=== PATIENT | female | born 1995 ===

== ENCOUNTER 2023-06-02 06:25 | Inpatient (IN) | payer OTHER ==
[~2023-06-02] VITALS: Ht 162.6 cm; Wt 66.7 kg
[2023-06-02 07:44] LABS: URINE APPEARANCE Clear; URINE BACTERIA 331.1 uL (0.0-1933); URINE BILIRRUBIN Negative (NEGATIVE); URINE BLOOD Trace; URINE COLOR Yellow; URINE EPITHELIAL CELLS 9.8 uL (0.0-38.8); URINE GLUCOSE Negative (NEGATIVE); URINE LEUKOCYTE Trace; URINE NITRATE Negative; URINE PROTEIN Negative (NEGATIVE); URINE UROBILINOGEN 0.2 E.U./dl; URINE WBC 16.5 uL (0.0-23.2)
[2023-06-02] MEDS ORDERED: OXYTOCIN 500 ML IV SCH (07:45)
[2023-06-02 07:48] LABS: URINE RBC 1.1 uL (0.0-20.8)
[2023-06-02] MEDS ORDERED: PRENATAL TABLE1 EAC4 PO (07:58)
[2023-06-02 08:09] LABS: HEMATOCRIT 35.8 % (36.0-45.00); HEMOGLOBIN 12.4 g/dL (12.0-15.00); MEAN CELL VOLUME 87.1 fL (80.00-100.00); MEAN CORPUSCULAR HEMOGLOBIN 30.3 pg (27.00-32.0); MEAN CORPUSCULAR HGB CONC 34.8 g/dl (32.0-36.0); PLATELET COUNT 206 K/uL (150-450); RED BLOOD COUNT 4.11 M/uL (4.00-6.00); RED CELL DISTRIBUTION WIDTH 13.4 % (11.5-14.5)
[2023-06-02 08:35] LABS: INR < 0.93; PARTIAL THROMBOPLASTIN TIME 29.1 SECONDS (22.0-34.0); PROTHROMBIN TIME 9.8 SECONDS (9.0-11.5)
[2023-06-02 08:39] LABS: ALBUMIN 2.6 gm/dL (3.4-5.0); BILIRUBIN TOTAL 0.3 mg/dL (0.3-1.2); CALCIUM 9.2 mg/dL (8.5-10.1); CREATININE SERUM 0.67 mg/dL (0.55-1.02); GFR 105.58; GLOBULINA 3.7 G/DL (2.4-3.5); POTASSIUM 3.52 mEq/L (3.5-5.1); TOTAL PROTEIN 6.3 gm/dL (6.4-8.2)
[2023-06-02] MEDS ORDERED: RINGERS SOLUTION,LACTATED 1,000 ML IV SCH (08:45)
[2023-06-02] MEDS ORDERED: CHLORHEXIDINE GLUCONATE 120 ML BOTTLE TOP ONE (09:27)
[2023-06-02] MEDS ORDERED: ERYTHROMYCIN BASE 1 GM TUBE OP ONE (09:28)
[2023-06-02] MEDS ORDERED: PROMETHAZINE HCL 25 MG/ML AMPUL ONE (09:28)
[2023-06-02] MEDS ORDERED: OXYTOCIN 20 UNITS/1000ML RL PIGGYBAG IV ONE (09:28)
[2023-06-02] MEDS ORDERED: MEPERIDINE HCL/PF 25 MG/ML VIAL IV ONE (10:00)
[2023-06-02] MEDS ORDERED: PROMETHAZINE HCL 25 MG/ML AMPUL IV ONE (10:00)
[2023-06-02] MEDS ORDERED: NALOXONE HCL 0.4 MG/ML AMPUL ONE (11:19)
[2023-06-02] MEDS ORDERED: CHLORHEXIDINE GLUCONATE 120 ML BOTTLE TOP SCH (12:45)
[2023-06-02] MEDS ORDERED: OXYTOCIN 1,000 ML IV SCH (12:45)
[2023-06-02] MEDS ORDERED: LIDOCAINE HCL 1% 200MG/20ML VIAL IJ SCH (12:45)
[2023-06-02] MEDS ORDERED: ERYTHROMYCIN BASE 1 GM TUBE OP SCH (12:45)
[2023-06-02] MEDS ORDERED: ACETAMINOPHEN 500 MG GEL..CAP PO PRN (12:45)
[2023-06-02] MEDS ORDERED: METHYLERGONOVINE MALEATE 0.2 MG/ML AMPUL ONE ×2 (13:58→15:50)
[2023-06-02] MEDS ORDERED: METHYLERGONOVINE MALEATE 0.2 MG/ML AMPUL IV ONE (14:30)
[2023-06-02 14:58] LABS: ABG PH 7.332 (7.35-7.45); ABG PO2 39.1 mmHg (80-100); ABG pCO2 42.4 mmHg (35-45); BASE EXCESS -3.8 mmol/l; SaO2 68.7 %; Tco2 23.3 mmol/l; o2 21 %
[2023-06-02] MEDS ORDERED: METHYLERGONOVINE MALEATE 0.2 MG/ML AMPUL IM SCH (17:00)
[2023-06-02] MEDS ORDERED: DOCUSATE SODIUM 100MG CAP PO SCH (17:00)
[2023-06-03] MEDS ORDERED: BENZOCAINE/MENTHOL 90 ML BOTTLE TOP PRN (09:00)
== END 2023-06-04 13:09 | disposition home or self-care (01) | DRG 807 ==
LOC: OB/GYN 06:25 → LDR 06:25 → OB/GYN 13:48
PROVIDERS: Obstetrics & Gynecology; ADMIT Student in an Organized Health Care Education/Training Program; ATTEND Student in an Organized Health Care Education/Training Program
PROC: 10E0XZZ Delivery of Products of Conception, External Approach (ICD-10-PCS; principal; 2023-06-02)
PROC: 0KQM0ZZ Repair Perineum Muscle, Open Approach (ICD-10-PCS; 2023-06-02)
PROC: 4A1HXCZ Monitoring of Products of Conception, Cardiac Rate, External Approach (ICD-10-PCS; 2023-06-02)
PROC: 3E033VJ Introduction of Other Hormone into Peripheral Vein, Percutaneous Approach (ICD-10-PCS; 2023-06-02)
DX: O70.1 Second degree perineal laceration during delivery (principal); Z37.0 Single live birth; Z3A.38 38 weeks gestation of pregnancy; Z20.822 Contact with and (suspected) exposure to COVID-19